=== PATIENT | female | born 1965 | race Caucasian/White ===

== ENCOUNTER 2023-08-26 19:44 | Emergency (ER) | payer MEDICAID ==
[~2023-08-26] VITALS: Ht 160 cm; Wt 72.0 kg
[2023-08-26 19:45] VITALS: BP 141/93; PULSE 77; RESP 18; TEMP 98.2; O2SAT 98
== END 2023-08-26 21:17 | disposition home or self-care (01) ==
LOC: ER 19:44
DX: R05.9 Cough, unspecified (principal)
CPT/HCPCS: 71045; 99283